=== PATIENT | female | born 1990 | race Caucasian/White ===

== ENCOUNTER 2017-03-02 21:23 | Emergency (ER) | payer MEDICAID ==
[~2017-03-02] VITALS: Ht 157.5 cm; Wt 62.5 kg
[~2017-03-02 21:23] MED LIST: BACTDS PO; IBUP800T25 PO; PNV1TABL43 PO
[2017-03-02 21:32] VITALS: Ht 157.5 cm; Wt 62.5 kg
[2017-03-02] MEDS ORDERED: IBUPROFEN 800 MG TAB PO ONE (22:30)
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
[2017-03-02] MEDS ORDERED: NAPR-260 PO (23:47)
[2017-03-02] MEDS ORDERED: CYCL-319 PO (23:47)
[2017-03-02] MEDS ORDERED: HYDR-906 PO (23:47)
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
== END 2017-03-03 00:23 | disposition home or self-care (01) ==
LOC: FTE 21:23
DX: M25.531 Pain in right wrist (principal); R07.89 Other chest pain
CPT/HCPCS: 29125; 71010; 73110; Z7502; Z7610